=== PATIENT | female | born 1960 | race Caucasian/White ===

== ENCOUNTER → 2017-11-19 | Outpatient (CLI) | payer OTHER | LOC: RESP 13:01 | PROVIDERS: ATTEND Family Medicine | DX: J98.4 Other disorders of lung (principal) | CPT/HCPCS: 94060; 94726; 94729 ==

== ENCOUNTER → 2017-12-07 | Outpatient (CLI) | payer OTHER ==
--- NOTE | 2017-12-07 10:31 | RADIOLOGY IMAGING REPORT ---
[place] [facility] [place] NAME: Diane Lemus : 1960 MR: [id number] V: [id number] EXAM DATE: ORDERING PHYSICIAN: GERALD KNIGHT TECHNOLOGIST: Location: [facility] - [place] Patient: Diane Lemus : 1960 Visit/Account:[id number] Date of Sevice: 12/07/2017 Exam type: CHEST PA AND LAT History: Shortness of breath Comparison: None. Findings: The lungs are free of acute effusions, infiltrates or edema. There is no evidence of a pneumothorax or pneumomediastinum. Cardiac silhouette is normal in size. The trachea is midline. There are surg ical clips left upper quadrant of the abdomen IMPRESSION: 1. No acute cardiac pulmonary process is seen Report Dictated By: Carmel Bustillo MD at 12/07/2017 10:26 AM Report E-Signed By: Carmel Bustillo MD at 12/07/2017 10:27 AM WSN:[email or web address]
--- NOTE | 2017-12-07 16:22 | RADIOLOGY IMAGING REPORT ---
FACILITY: [facility] - [place] PATIENT NAME: ANITA OCASIO : [id number] MR: [id number] V: [id number] EXAM DATE: [id number] ORDERING PHYSICIAN: GERALD KNIGHT TECHNOLOGIST: Marisa Abbott PROCEDURE:BILATERAL DIGITAL SCREENING MAMMOGRAM WITH CAD ASSISTED INTERPRETATION & 3D TOMOSYNTHESIS COMPARISON:Prior mammograms 03/25/16. INDICATIONS:SCREENING FINDINGS: A small amount of fibroglandular tissue is seen throughout the breasts. Most of the parenchymal pattern has remained stable allowing for difference in mammographic technique & patient positioning. There is a nodular density in the upper outer quadrant of the Right breast that appears more prominent. Right breast Ultrasound is recommended for further evaluation. DIAGNOSTIC CATEGORY 0--INCOMPLETE: NEED ADDITIONAL IMAGING EVALUATION. RECOMMENDATIONS: ULTRASOUND: RIGHT BREAST. IMPRESSION: BIRADS 0: Incomplete. Right breast Ultrasound recommended as described. Dictated by: Carmel Bustillo M.D. on 12/07/2017 at 15:55 Transcribed by: MESSI on 12/07/2017 at 16:08 Approved by: Carmel Bustillo M.D. on 12/07/2017 at 16:21 [facility]
== END ==
LOC: MAMO 00:16
PROVIDERS: ATTEND Family Medicine
DX: R92.2 Inconclusive mammogram (principal); Z80.3 Family history of malignant neoplasm of breast; R06.02 Shortness of breath
CPT/HCPCS: 71046; 77063; 77067

== ENCOUNTER → 2017-12-09 | Outpatient (CLI) | payer OTHER ==
--- NOTE | 2017-12-09 10:50 | RADIOLOGY IMAGING REPORT ---
FAC[place] [facility] [place]IENT NAME: ANITA OCASIO : [id number] MR: [id number] V: [id number] EXAM DATE: [id number] ORDERING PHYSICIAN: GERALD KNIGHT TECHNOLOGIST: Vidya Buckley RT(R)(CT) PROCEDURE:US RIGHT BREAST COMPARISON:Prior Right mammogram 12/07/17 & 03/25/16. INDICATIONS:further evaluation FINDINGS: In the approximate 8 o'clock position of the Right breast there is a 6 x 6 x 4mm fatty replaced lymph node approximately 10cm from the nipple. This may account for the recent mammographic finding. A 6 month follow- up Right mammogram is recommended to assure stability of the mammographic findings. DIAGNOSTIC CATEGORY 3--PROBABLY BENIGN FINDING. RECOMMENDATIONS: SIX MONTH FOLLOW-UP DIAGNOSTIC MAMMOGRAM: RIGHT BREAST. IMPRESSION: BIRADS 3: Probably benign finding. A 6 month follow-up Right mammogram is recommended. Dictated by: Carmel Bustillo M.D. on 12/09/2017 at 10:34 Transcribed by: MESSI on 12/09/2017 at 10:42 Approved by: Carmel Bustillo M.D. on 12/09/2017 at 10:48 [facility]
== END ==
LOC: US 00:32
PROVIDERS: ATTEND Family Medicine
DX: N64.1 Fat necrosis of breast (principal)

== ENCOUNTER → 2018-06-06 | Outpatient (CLI) | payer OTHER ==
--- NOTE | 2018-06-07 16:43 | RADIOLOGY IMAGING REPORT ---
FACILITY: [facility] PATIENT NAME: ANITA OCASIO : [id number] MR: [id number] V: [id number] EXAM DATE: [id number] ORDERING PHYSICIAN: GERALD KNIGHT TECHNOLOGIST: Raiza Rodriguez PROCEDURE:RIGHT DIGITAL DIAGNOSTIC MAMMOGRAM WITH CAD ASSISTED INTERPRETATION & 3D TOMOSYNTHESIS COMPARISON:Prior mammograms 12/07/17, 03/25/16 and the prior Right breast Ultrasound 12/09/17. INDICATIONS:6 MONTH F/U FINDINGS: There are areas of scattered fibroglandular density throughout the Right breast. The parenchymal pattern has remained stable allowing for difference in mammographic technique & patient positioning. A small fatty replaced lymph node again seen in the upper outer quadrant of the Right breast. DIAGNOSTIC CATEGORY 3--PROBABLY BENIGN FINDING. RECOMMENDATIONS: SIX MONTH FOLLOW-UP SCREENING MAMMOGRAM: BILATERAL BREASTS. IMPRESSION: BIRADS 3: Probably benign finding. The Right breast has remained stable mammographically. A 6 month follow-up bilateral mammogram is recommended at which time the patient will be due for her annual mammogram. Dictated by: Carmel Bustillo M.D. on 06/06/2018 at 17:27 Transcribed by: MESSI on 06/07/2018 at 10:36 Approved by: Carmel Bustillo M.D. on 06/07/2018 at 16:41 [facility]
== END ==
LOC: MAMO 10:53
PROVIDERS: ATTEND Family Medicine
DX: R92.8 Other abnormal and inconclusive findings on diagnostic imaging of breast (principal)
CPT/HCPCS: 77061; 77065

== ENCOUNTER → 2018-07-07 | Outpatient (CLI) | payer OTHER ==
--- NOTE | 2018-07-07 11:16 | RADIOLOGY IMAGING REPORT ---
FACILITY: [facility] - [place] PATIENT NAME: Diane Lemus : 1960 MR: [id number] V: [id number] EXAM DATE: ORDERING PHYSICIAN: GERALD KNIGHT TECHNOLOGIST: Location: [facility] Patient: Diane Lemus : 1960 Visit/Account:[id number] Date of Sevice: 07/07/2018 GALLBLADDER HISTORY: Right upper quadrant pain off and on COMPARISON: None. FINDINGS: Gallbladder: Numerous shadowing stones are seen within the gallbladder. Gallbladder wall is not thic kened and measures 2.69 m in diameter. There is a negative Gaines sign by technologist notation. Liver: Negative. Common duct: Normal, 4.6 mm diameter. Pancreas: Partially obscured by bowel, visualized aspects unremarkable. Right kidney: There two small cysts identified in the right kidney measuring up to 9 mm. There is no evidence of hydronephrosis. Upper abdominal aorta and IVC: Patent. Ascites: None visualized. IMPRESSION: Numerous shadowing gallstones although no evidence of gallbladder wall thickening, positive Gaines si gn or biliary ductal dilatation Two separate Small right renal cysts Report Dictated By: Carmel Bustillo MD at 07/07/2018 11:07 AM Report E-Signed By: Carmel Bustillo MD at 07/07/2018 11:12 AM WSN:[email or web address]
== END ==
LOC: US 00:56
PROVIDERS: ATTEND Family Medicine
DX: R10.11 Right upper quadrant pain (principal); Z87.19 Personal history of other diseases of the digestive system; N28.1 Cyst of kidney, acquired
CPT/HCPCS: 76705

== ENCOUNTER → 2018-07-12 | Outpatient (CLI) | payer OTHER ==
[~2018-07-12] MED LIST: SINCALIDE 5 MCG VIAL INJ ONE; WATER FOR INJ,STERILE 20 ML 0 ML ONE
--- NOTE | 2018-07-13 09:08 | RADIOLOGY IMAGING REPORT ---
FACILITY: [facility] - [place] PATIENT NAME: Diane Lemus : 1960 MR: [id number] V: [id number] EXAM DATE: ORDERING PHYSICIAN: GERALD KNIGHT TECHNOLOGIST: Location: [facility] - [place] Patient: Diane Lemus : 1960 Visit/Account:[id number] Date of Sevice: 07/12/2018 NM HIDA SCAN HISTORY: Right upper quadrant pain, cholelithiasis TECHNIQUE: 6.1 mCi Tc99m Hepatolite was injected intravenously. Multiple sequential gamma camera jackeline ges of the abdomen were obtained for minutes. At that time, a fatty meal consisting of 8 ounces of alex lf and half was administered orally and an additional 30 minutes of gamma camera imaging data was acq uired. A computer-generated region of interest was placed around the gallbladder and time-activity cu rve for the gallbladder was derived. The gallbladder ejection fraction was calculated. COMPARISON: Gallbladder ultrasound July 07, 2016 FINDINGS: Liver uptake and excretion: Unremarkable. Time to appearance: Bile ducts: 7 minutes. Gallbladder: 21 minutes. Duodenum: 8 minutes. Duodenal-gastric reflux / extravasation: None. Post IV Kinevac: There was diminished contraction of the gallbladder Patient symptoms: None reported Ejection fraction = 12% (normal range >35%). IMPRESSION: Abnormally low gallbladder ejection fraction of 12% Report Dictated By: Carmel Bustillo MD at 07/13/2018 9:01 AM Report E-Signed By: Carmel Bustillo MD at 07/13/2018 9:03 AM WSN:[email or web address]
== END ==
LOC: NUC 08:00
PROVIDERS: ATTEND Family Medicine
DX: R10.11 Right upper quadrant pain (principal); Z87.19 Personal history of other diseases of the digestive system
CPT/HCPCS: 78226; A9537; J2805

== ENCOUNTER → 2018-08-03 | Outpatient (CLI) | payer OTHER ==
[2018-08-03 10:36] LABS: PLATELET COUNT, AUTOMATED 361 K/uL (150-450)
--- NOTE | 2018-08-04 10:56 | EKG ---
FACILITY: [facility] - [place] PATIENT NAME: ANITA OCASIO : [id number] MR: [id number] V: [id number] EXAM DATE: ORDERING PHYSICIAN: DAHLIA GEIGER TECHNOLOGIST: KRYSTINA Test Reason : PRE-OP Blood Pressure : / mmHG Vent. Rate : 052 BPM Atrial Rate : 052 BPM P-R Int : 146 ms QRS Dur : 070 ms QT Int : 442 ms P-R-T Axes : 005 057 060 degrees QTc Int : 411 ms Sinus bradycardia Nonspecific ST findings No previous ECGs available Confirmed by EVIE SARMIENTO ([id number]) on 08/04/2018 2:11:51 PM Referred By: Confirmed By:EVIE SARMIENTO
== END ==
LOC: LAB 09:56
PROVIDERS: ATTEND Surgery
DX: K80.20 Calculus of gallbladder without cholecystitis without obstruction (principal); R73.03 Prediabetes
CPT/HCPCS: 36415; 82040; 82247; 82310; 82374; 82435; 82565; 82947; 83036; 83690; 84075; 84132; 84155; 84295; 84450; 84460; 84520; 85025

== ENCOUNTER 2018-09-13 01:38 | Day surgery (SDC) | payer OTHER ==
[~2018-09-13] VITALS: Ht 172.7 cm; Wt 86.2 kg
[2018-09-13] VITALS (11 sets, daily range): BP systolic 112–136; BP diastolic 54–96
[~2018-09-13 01:38] MED LIST changes: +CHOL10005 PO; +CHRO400T2 PO; +LEVO75TA73 PO; +MAX75 PO; +METF-450 PO; +OMEG-11 PO; +SIMV-49 PO; -SINCALIDE 5 MCG VIAL INJ ONE; +UBID100C48 PO; -WATER FOR INJ,STERILE 20 ML 0 ML ONE
[2018-09-13] MEDS ORDERED: ceFAZolin(*) 2GM/D5W 50ML 50 ML IVPB ONE (06:05)
[2018-09-13] MEDS ORDERED: MIDAZOLAM 2 MG/2 ML VIAL IVP PRN (06:30)
[2018-09-13] MEDS ORDERED: FAMOTIDINE 20 MG TAB PO ONE (06:30)
[2018-09-13] MEDS ORDERED: LIDOCAINE/SOD BICARB 8.4% SYR ID ONE (06:30)
[2018-09-13] MEDS: NORMOSOL R SOLN(*) 1000 ML BAG 1,000 ML IV PRN ×2 (06:40→10:10)
[2018-09-13] MEDS ORDERED: BUPIVACAINE/EPI 0.5% 50ML VIAL INFIL ONE (06:48)
[2018-09-13] MEDS ORDERED: INDOCYANINE GREEN 25 MG VIAL IVP ONE (07:20)
[2018-09-13] MEDS ORDERED: HYDROmorphone HCL 2 MG/ML SDV ONE (07:42)
[2018-09-13] MEDS ORDERED: fentaNYL CITR 100 MCG/2 ML AMP ONE ×2 (07:43→09:22)
[2018-09-13] MEDS ORDERED: SUGAMMADEX SOD 200 MG/2 ML SDV ONE (08:47)
[2018-09-13] MEDS ORDERED: ONDANSETRON 4 MG/2 ML VIAL ONE ×2 (08:52→09:29)
[2018-09-13] MEDS ORDERED: PROPOFOL EMUL(*) 10MG/ML 20 ML 20 ML ONE (08:52)
[2018-09-13] MEDS ORDERED: ROCURONIUM BR 10 MG/ML 5 ML SY 5 ML ONE (08:52)
[2018-09-13] MEDS ORDERED: DEXAMETHASONE SOD PHOS 10MG/ML ONE (08:52)
[2018-09-13] MEDS ORDERED: TRAM-420 PO (09:53)
--- NOTE | 2018-09-13 09:55 | Short(Outpt) Discharge Summary ---
Discharge Summary Reason for Hosp/Final Diag: (1) Symptomatic cholelithiasis Departure Discharge to: Home Discharge Instructions Home Meds Active Scripts Tramadol Hcl (TRAMADOL HCL) 50 Mg Tablet, 50 MG PO Q4H PRN for PAIN, #20 TAB Prov:DAHLIA MENA 09/13/18 Reported Medications Levothyroxine Sodium (LEVOTHYROXINE SODIUM) 75 Mcg Tablet, 75 MCG PO QDAY, TAB 09/09/18 Cholecalciferol (Vitamin D3) (VITAMIN D3) 1,000 Unit Tablet, 31257 UNIT PO QWEEK, TAB 09/09/18 Simvastatin (SIMVASTATIN) 20 Mg Tablet, 5 MG PO HS, TAB 09/09/18 Chromium Amino Acid Chelate (CHROMIUM) 400 Mcg Tablet, 400 MCG PO QDAY 09/09/18 Triamterene/Hctz (TRIAMTERENE-HCTZ 75-50 MG TAB) 1 Each Tab, 0.5 EACH PO QDAY, TAB 09/09/18 Metformin Hcl (METFORMIN HCL) 500 Mg Tablet, 1 TAB PO BID, TAB 09/09/18 Varney-3 Fatty Acids/Fish Oil (FISH OIL 1,000 MG CAPSULE) 1 Each Capsule, 1 EACH PO QDAY, CAPSULE 09/09/18 Ubidecarenone (COQ-10) 100 Mg Capsule, 100 MG PO QDAY, CAPSULE 09/09/18 Special Instructions: No fatty or greasy food for 3 wks. No lifting more than 15 lbs for 3 wks. Take stool softener while taking pain meds. Ok to shower tomorrow. F/u dr. griffin mena 2 wks ([phone]). DAHLIA MENA Sep 13, 2018 09:55
--- NOTE | 2018-09-13 10:38 | NUR ---
1015 SBAR REPORT WAS RECEIVED FROM [facility]. PATIENTS O2 WAS MOVED TO 1 LITER ON ARRIVAL. SHE STATES HER PAIN IS 5/10 AND STATES IT IS NOT INCISIONAL PAIN BUT FEELS LIKE THE GAS FROM THE PROCEDURE. INCISIONS ARE DRY AND INTACT. SHE STATES SHE FEELS SLIGHTLY NAUSEA RIGHT NOW. 1025 WARM BLANKETS WERE APPLIED TO ABDOMEN TO HELP WITH GAS PAIN. SHE WAS ALSO GIVEN A QUEASE TO HELP WITH NAUSEA.
--- NOTE | 2018-09-13 11:05 | NUR ---
1105 PATIENT STATES HIS ABDOMEN IS HURTING STILL. SHE REQUESTED MORE WARM BLANKETS SINCE THAT SEEMED TO HELP. NAUSEA HAS PASSED.
--- NOTE | 2018-09-13 11:12 | NUR ---
1108 PATIENT BEGAN EATING APPLESAUCE AND DRINKING WATER
[2018-09-13] MEDS ORDERED: traMADol 50 MG TAB PO ONE (11:15)
--- NOTE | 2018-09-13 11:37 | NUR ---
1135 PATIENT TOOK TRAMADOL FOR PAIN. SHE STATES SHE IS STARTING TO FEEL MORE INCISIONAL PAIN BUT IT IS STILL MOSTLY GAS PAIN
--- NOTE | 2018-09-13 11:38 | NUR ---
1135 PATIENT WAS MOVED TO ROOM AIR
--- NOTE | 2018-09-13 12:12 | NUR ---
1147 PATIENTS O2 DROPPED TO 83%. ENCOURAGE PATIENT TO CONTINUE TO COUGH AND DEEP BREATHE. PATIENTS O2 MOVED TO 0.5 LITERS
[2018-09-13] MEDS ORDERED: KETOROLAC 30 MG/ML VIAL IVP ONE (13:10)
--- NOTE | 2018-09-13 14:00 | NUR ---
1338 PATIENT WAS GIVEN 30 MG OF IV TORADOL FOR 5-6/10 PAIN 1350 PATIENT BEGAN GETTING DRESSED 1355 PATIENTS IV'S WERE DC'D WITH CATH INTACT. SHE STATES HER PAIN IS DOWN TO 3/10. 1400 PATIENT WAS TAKEN VIA WHEELCHAIR. SHE DENIES ANY NAUSEA AND STATES HER PAIN IS 3/10. BOWEL SOUNDS ARE ACTIVE. INCISIONS REMAIN DRY. LUNGS ARE CLEAR. PATIENT WAS STABLE ON HER FEET. SEE DISCHARGE ASSESSMENT.
--- NOTE | 2018-09-13 15:52 | NUR ---
1158 CARDIOPULMONARY WAS CALLED TO TEACH PATIENT ON AEROBIKA
--- NOTE | 2018-09-13 15:53 | NUR ---
1230 PATIENT IS RESTING IN THE BED 1300 PATIENT STATES SHE IS FEELING LIKE SHE IS READY TO GET OUT. 1325 FINISHED DC INSTRUCTIONS WITH PATIENT AND FRIEND. THEY VERBALIZED UNDERSTANDING
--- NOTE | 2018-09-14 07:19 | OPERATIVE REPORT 1 ---
EVENT DATE: September 13, 2018 SURGEON: Gigi Guerrero MD ANESTHESIOLOGIST: Jose Manuel MD ANESTHESIA: General and local. SUPERVISING DEPUTY: None. PREOPERATIVE DIAGNOSIS Symptomatic cholelithiasis and biliary dyskinesia. POSTOPERATIVE DIAGNOSIS Symptomatic cholelithiasis and biliary dyskinesia. PROCEDURE PERFORMED 1. Robotic cholecystectomy. 2. Lysis of adhesions. FLUIDS IV crystalloids. ESTIMATED BLOOD LOSS Minimal. SPECIMENS Gallbladder. COMPLICATIONS None. INDICATIONS This is a 58-year old female with a long history of upper abdominal discomfort. Imaging showed cholelithiasis and a low ejection fraction on the HIDA scan. On physical exam, patient's abdomen was soft. She is stable. Risks and benefits of the procedure were explained and consent was signed for the procedure. PROCEDURE The patient was taken to the operating room and placed in the supine position. General anesthesia was administered per the Anesthesia team. Patient was prepped and draped in normal sterile fashion. Local analgesia was injected into the dermis above the umbilicus and a 12 mm incision was made in the umbilicus. The umbilical stump was grasped and elevated. Veress needle was inserted. Pneumoperitoneum was achieved. Veress needle was removed. The 8 mm port was advanced. The laparoscope was then advanced. After injecting local analgesia and under direct visit, a right sided 8 mm port and two left sided 8 mm ports were placed. The supraumbilical port was later exchanged for a 12 mm port. LigaSure was used to divide some adhesions from her previous surgery. This took approximately 5 minutes. The robot was then docked. The fundus of the gallbladder was grasped and retracted superiorly and laterally. Infundibulum was grasped and retracted. Electrocautery was used to free the cystic duct, the cystic artery and surrounding tissue. Both structures were seen going directly to the gallbladder. Three clips were placed on the cystic artery and both were divided sharply between the distal two clips. The gallbladder was taken off the liver bed with electrocautery. It was removed with Endo Catch bag through the large port site. The right upper quadrant was irrigated and suctioned. Irrigant returned clear. Hemostasis was assured. Clips were confirmed to be in place. The robot was undocked. Fascia closure device with 0 Vicryl stitch was used to close the fascia of the large port site. Other ports were removed under direct vision. Hemostasis was assured. Final port was removed after pneumoperitoneum was relieved. All skin incisions were closed with 4-0 Monocryl subcuticular stitches. More local analgesia was injected. Appropriate dressings were applied. The patient tolerated the procedure well and there were no complications. JACQUE
== END 2018-09-13 10:10 | disposition home or self-care (01) ==
LOC: OR 01:38
PROVIDERS: ATTEND Surgery
DX: K80.20 Calculus of gallbladder without cholecystitis without obstruction (principal); E11.9 Type 2 diabetes mellitus without complications; K82.8 Other specified diseases of gallbladder; I10 Essential (primary) hypertension
CPT/HCPCS: 36416; 47562; 82948; 88304; 94667; J1100; J1170; J1885; J2250; J2405; J2704; J3010; S2900; J0690